=== PATIENT | female | born 1995 | race Caucasian/White ===

== ENCOUNTER 2017-02-06 19:25 | Emergency (ER) | payer MEDICAID ==
[2017-02-06 19:32] VITALS: BP 133/92
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
--- OUTSIDE RECORDS SUMMARY | 2017-02-06 19:55 | XMS REPORT | Continuity of Care Document ---
:1995 Author Organization [facility] [place] [address] Care Team Providers Name Role Phone Unavailable Primary Care Provider Unavailable Source Comments This disclosure is being made pursuant to the [employer] program and maynot contain all information available regarding this patient.[facility] Active Allergies and Adverse Reactions Not on File Current Medications Be aware that medications may not be up to date as of this document. Alwaysverify current medications with the patient. Not on file Active Problems Not on file Social History Tobacco Use Types Packs/Day Years Used Date Never Assessed Plan of Care Health Maintenance Due Date Last Done Comments HPV Vaccine ([id number],M: 9-22) (1 of 3 - Female/Unknown 2004 3 Dose Series) Chlamydia Screening 2009 Retired-Tetanus Vaccine Adult 2012 Pap Smear 2014 Retired-INFLUENZA VACCINE 04/03/2015 Results from Last 3 Months Not on file
== END 2017-02-06 19:53 | disposition home or self-care (01) ==
LOC: ER 19:25
DX: F43.0 Acute stress reaction (principal); Z72.0 Tobacco use